=== PATIENT | male | born 1965 | race Caucasian/White ===

== ENCOUNTER 2025-07-03 08:37 | Emergency (ER) | payer OTHER, SELFPAY ==
[2025-07-03 08:48] VITALS: BP 139/94
--- NOTE | 2025-07-03 09:34 | ED.GENMED ---
History of Present Illness
General
Chief Complaint: Dizziness
Source: patient
Time Seen by Provider: 07/03/25 09:14
History of Present Illness
History of Present Illness:
60-year-old male presents emergency room for evaluation of dizziness. Patient woke up in the middle of the night to use the restroom and felt severe vertigo. He was nauseous and diaphoretic. He was able to get that and get back to sleep. When he
awoke he had similar symptoms. While laying in bed he noted that if he laid on his right side the symptoms were severe. If he laid on his left side he had no dizziness or vertigo. noted that he looked pale and unwell this morning prompting
their visit to the ER. Since then his symptoms have completely resolved. He has no symptoms with head movement now. No headache. No focal weakness numbness or tingling.
Phy Exam
Physical Exam
Physical Exam:
General: Awake, Alert, Oriented X3. No acute distress.
Vitals: unremarkable
Head: Atraumatic
Eyes: Pupils equal, EOMI
Throat: Airway intact, no exudates
Neck: Trachea midline
Lungs: Clear and equal b/l
Heart: Regular rate, no murmurs
Abd: Soft, Nontender, No pulsatile mass
Neuro: Cranial nerves intact, muscle strength equal bilaterally, cerebellar exam normal. Negative Hallpike maneuver bilaterally
Skin: Warm, dry, no rash
Extremities: pulses equal b/l, no edema
Course
Orders/Labs/Results
Orders:
Orders
07/03/25 08:51
Electrocardiogram (*1) Urgent
Reason for Study: Vertigo / Dizzy
EKG- Treatment ONCE
Vital Signs
Initial and Last Documented VS:
Initial Vital Signs
Temp Pulse Resp BP Pulse Ox
97.8 F 54 16 139/94 98
07/03/25 08:48 07/03/25 08:48 07/03/25 08:48 07/03/25 08:48 07/03/25 08:48
Last Documented Vital Signs
Temp Pulse Resp BP Pulse Ox
97.8 F 54 16 139/94 98
07/03/25 08:48 07/03/25 08:48 07/03/25 08:48 07/03/25 08:48 07/03/25 09:35
MDM/Problems Addressed
Differential Diagnosis Includes:
Benign paroxysmal positional vertigo, labyrinthitis, dehydration
MDM/Problems Addressed:
Patient symptoms have resolved. When he did have symptoms it was very related to position and head movement. Suspect BPPV. At the time of discharge the patient is completely asymptomatic. Labs here show no acute abnormality. No findings to
suggest a central cause of vertigo.
*Pulse Oximetry
SaO2: 98
Oxygen Mode of Delivery: Room air
Patient hypoxic: no
*EKG
Heart Rate: 49
Rate: bradycardiac
Rhythm: sinus
[place]: normal axis
Interval: normal interval
QRS Pattern: normal QRS
Ischemia: no ischemia
*Catalyst Operator Chief Interpretation
Rate: bradycardiac
Interpretation: abnormal
Heart Rate: 49
Rhythm: sinus
*Critical Care Note
Total Time (30-74mins, 75-104mins- exclusive of procedures): Not Applicable
ED Attending Note
-
Portions of this chart may have been created with voice recognition software.� Occasional wrong word or��sound alike� substitutions may have occurred due to the inherent limitations of voice recognition software.
Discharge Plan
Departure
Patient Disposition: Home (Routine Discharge)
Date of Disposition: 07/03/25
Time of Disposition: 10:16
Patient with high blood pressure during this ER visit?: No
Condition: Good
Discharge Problem:
Benign paroxysmal positional vertigo
Instructions: Exercises (maneuvers) for benign paroxysmal positional vertigo, Vertigo - ED (DC)
Referrals:
NONE,* [Family Provider, Internal Medicine]
Activity Restrictions/Additional Instructions:
You can make an appointment with a physical therapist that has special training in vertigo here at [facility]. Their phone number is [phone]
Interventions
Interventions:
*Risk Screen - Suicide Last Done: 07/03/25 08:48
*General Assessment Last Done: 07/03/25 10:41
*Neglect/Abuse Screening Last Done: 07/03/25 08:48
*ED- Fall Risk Assessment Last Done: 07/03/25 10:41
*ED COVID-19 Vaccine History Last Done: 07/03/25 10:41
*Nursing Disposition Last Done: 07/03/25 10:41
ED- Neurological Assessment Last Done: 07/03/25 10:41
ED- Cardiac Assessment Last Done: 07/03/25 10:43
Discharge Date and Time
Discharge Date/Time: 07/03/25 10:43
Print Language: [id number]
== END 2025-07-03 10:43 | disposition home or self-care (01) ==
LOC: EMR 08:37
PROVIDERS: EMERGENCY PHYSICIAN Emergency Medicine
DX: H81.10 Benign paroxysmal vertigo, unspecified ear (principal)
CPT/HCPCS: 99283; 93005